=== PATIENT | male | born 1945 | race Caucasian/White ===

== ENCOUNTER → 2021-12-13 | Outpatient (CLI) | payer MEDICARE ==
[2021-12-13 14:14] VITALS: BP 186/93; PULSE 72; TEMP 98.2; BMI 29.9
--- NOTE | 2021-12-13 14:58 | P.HPBAR ---
Bariatric H&P - History & Physicial H&P Date: 12/13/21 History & Physicial: Visit/CC: lap band follow up Patient initial contact: Initial weight: Initial weight in pounds: Height: 6 ft Initial BMI: Last weight: Current weight: 100.244 kg Current weight in pounds: 221.00 Current BMI: 29.9 [place] body weight (based on NIH guidelines): 80.739 kg Excess body weight loss: The patient is a 76 year-old M who presents for Bariatric Assessment. Resents today for LAP-BAND follow-up. He's been seen several years. He has complete epigastric pain. He also has some mild dysphagia. Past Medical History Smoking Status: Former smoker Surgical - Exam Vital Signs Temp Pulse BP 98.2 F 72 186/93 12/13/21 14:11 12/13/21 14:11 12/13/21 14:11 - General well developed, well nourished, no distress - Eyes PERRL - ENT normal pinna, normal nares - Neck no masses - Respiratory normal expansion - Cardiovascular Rhythm: regular - Abdomen Abdomen: soft, non tender Bariatric Assessment & Plan Plan: Patient had [place] surgery many years ago. His epigastric pain will be in this area with upper GI and EGD. Bariatric Checklist Checklist: Plan: Checklist: EGD: 1. Hiatal hernia: 2. H. Pylori: HgbA1c: Vitamin D: Smoking: Primary care physician referral: Psychiatry clearance: Cardiology clearance: Sleep study: Diet journal: VTE risk score: VTE risk level: Rehab needs at discharge:
== END ==
LOC: BARWHC3 13:48
PROVIDERS: ATTEND Surgery
DX: Z09 Encounter for follow-up examination after completed treatment for conditions other than malignant neoplasm (principal); R10.13 Epigastric pain; R13.10 Dysphagia, unspecified; Z87.891 Personal history of nicotine dependence; Z91.040 Latex allergy status
CPT/HCPCS: 99211

== ENCOUNTER → 2021-12-16 | Day surgery (SDC) | payer MEDICARE ==
[2021-12-15 09:18] VITALS: BMI 29.0
[~2021-12-16] MED LIST: IBUPROFEN 200 MG TAB PO ONE; LACTATED RINGERS 1,000 ML IV ONE; LACTATED RINGERS 1,000 ML IV SCH; LIDOCAINE 1% (10MG/ML) FOR IV START INTRADERMA PRN; LIDOCAINE 1% INJ 10MG/ML (20 ML MDV) ONE; PROPOFOL 10 MG/ML 20 ML VIAL IV ONE
[2021-12-16 11:18] VITALS: TEMP 98.2
--- NOTE | 2021-12-16 11:53 | P.GSHP ---
History of Present Illness H&P Date: 12/16/21 Chief Complaint: GERD This 76-year-old male. Previous history of GERD. Patient's is LAP-BAND. Patient presents today for EGD. Past Medical History Past Medical History: Cancer, Hyperlipidemia, Osteoarthritis (OA) Additional Past Medical History / Comment(s): prostate cancer, sinus infection, tooth pulled History of Any Multi-Drug Resistant Organisms: None Reported Past Surgical History: Appendectomy, Bariatric Surgery, Orthopedic Surgery, Prostate Surgery Additional Past Surgical History / Comment(s): lap band surgery Past Anesthesia/Blood Transfusion Reactions: No Reported Reaction Smoking Status: Former smoker - Past Family History Mother Family Medical History: No Reported History Medications and Allergies Home Medications Medication Instructions Recorded Confirmed Type Meloxicam [Mobic] 15 mg PO DAILY 12/13/21 12/16/21 History Multivitamins, Thera [Multivitamin 1 tab PO DAILY 12/13/21 12/16/21 History (formulary)] Simvastatin [Zocor] 20 mg PO DAILY 12/13/21 12/16/21 History Tadalafil [Cialis] 5 mg PO DIRECTED 12/13/21 12/16/21 History Amoxicillin 500 mg PO Q12HR 12/15/21 12/16/21 History Naproxen Sodium [Aleve] 220 mg PO DAILY 12/15/21 12/16/21 History Allergies Allergy/AdvReac Type Severity Reaction Status Date / Time latex Allergy Rash/Hives Verified 12/16/21 11:10 Surgical - Exam Vital Signs Temp Pulse Resp BP Pulse Ox 98.2 F 76 18 173/78 98 12/16/21 11:14 12/16/21 11:14 12/16/21 11:14 12/16/21 11:14 12/16/21 11:14 - General well developed, well nourished, no distress - Eyes PERRL - ENT normal pinna, normal nares - Neck no masses - Respiratory normal expansion - Cardiovascular Rhythm: regular - Abdomen Abdomen: soft, non tender Assessment and Plan Assessment: GERD. We'll perform EGD.
--- NOTE | 2021-12-16 12:03 | P.OP ---
Date of Procedure: 12/16/21 Preoperative Diagnosis: GERD Postoperative Diagnosis: Antral gastritis LAP-BAND without inflammation or erosion Procedure(s) Performed: EGD Anesthesia: MAC Surgeon: Jay Talavera Pathology: other (Antrum) Condition: stable Disposition: PACU Description of Procedure: The patient's placed on the endoscopy table in the lateral position. He received IV sedation. The gastroscope placed oropharynx passed in the esophagus and stomach. Scope was then placed through the pylorus. The first and second portion of the duodenum appeared normal. Scope was then brought back the antrum and this appeared mildly inflamed. A biopsies performed. The scope was unretroflexed and the meters stomach appeared normal. The patient a previously placed LAP-BAND device. This was without evidence of inflammation or erosion. The GE junction was at 40 cm. The distal esophagus appeared. The proximal esophagus appeared normal. Scope withdrawn for patient.
[2021-12-16 13:06] VITALS: BP 148/81; PULSE 61; RESP 18
== END ==
LOC: ORWHC2ENDO 10:49
PROVIDERS: ATTEND Surgery
DX: K29.50 Unspecified chronic gastritis without bleeding (principal); K21.9 Gastro-esophageal reflux disease without esophagitis; E78.5 Hyperlipidemia, unspecified; M19.90 Unspecified osteoarthritis, unspecified site; Z98.84 Bariatric surgery status; Z85.46 Personal history of malignant neoplasm of prostate; Z98.890 Other specified postprocedural states; Z90.49 Acquired absence of other specified parts of digestive tract; Z87.891 Personal history of nicotine dependence; Z79.899 Other long term (current) drug therapy; Z91.040 Latex allergy status
CPT/HCPCS: 88305; 43239; J2001; J2704

== ENCOUNTER → 2021-12-27 | Outpatient (CLI) | payer MEDICARE ==
--- NOTE | 2021-12-27 14:16 | FL ---
EXAMINATION TYPE: FL barium swallow DATE OF EXAM: 12/27/2021 LAP BANDING LIMITED ESOPHAGRAM: CLINICAL HISTORY: Lap band placed roughly 12 years ago with dysphasia, epigastric pain on and off fo r 3 months. Patient has had empty fill for years per patient. TECHNIQUE: Limited esophagram is performed utilizing 2-3 oz of barium. 23 seconds of fluoro time an d 33 images obtained. COMPARISON: None. FINDINGS: Pre-procedure geological scout image shows lap band in satisfactory position in proximal stomach ju st below the diaphragm. Phi Angle is within normal limits. The patient then drank oral contrast. There is good flow of contrast along the course of the esophagu s. There is good flow of contrast along the course of the lap band, there is no evidence of contrast extravasation to suggest leak. Small amount of contrast pools in mildly dilated distal esophagus. Th ere is no lap band slippage identified. Patient remains asymptomatic. IMPRESSION: No evidence of lap band slippage or significant obstruction.
== END | disposition home or self-care (01) ==
LOC: RADFLMAIN 12:55
PROVIDERS: ATTEND Surgery
DX: R13.10 Dysphagia, unspecified (principal)
CPT/HCPCS: 74220

== ENCOUNTER → 2021-12-27 | Outpatient (CLI) | payer MEDICARE ==
[2021-12-27 14:25] VITALS: BP 141/79; PULSE 69; TEMP 97.9; BMI 29.7
--- NOTE | 2021-12-27 14:30 | P.HPBAR ---
Bariatric H&P - History & Physicial H&P Date: 12/27/21 History & Physicial: Visit/CC: lap band follow up Patient initial contact: Initial weight: Initial weight in pounds: Height: 6 ft Initial BMI: Last weight: Current weight: 99.337 kg Current weight in pounds: 219.00 Current BMI: 29.7 [place] body weight (based on NIH guidelines): 80.739 kg Excess body weight loss: The patient is a 76 year-old M who presents for Bariatric Assessment. Patient feels well. He's had minimal GERD. And no dysphasia. Past Medical History Past Medical History: Cancer, Hyperlipidemia, Osteoarthritis (OA) Additional Past Medical History / Comment(s): prostate cancer, sinus infection, tooth pulled History of Any Multi-Drug Resistant Organisms: None Reported Past Surgical History: Appendectomy, Bariatric Surgery, Orthopedic Surgery, Prostate Surgery Additional Past Surgical History / Comment(s): lap band surgery Past Anesthesia/Blood Transfusion Reactions: No Reported Reaction Past Psychological History: No Psychological Hx Reported Smoking Status: Former smoker Past Alcohol Use History: None Reported Additional Past Alcohol Use History / Comment(s): quit smoking 1960 Past Drug Use History: None Reported - Past Family History Mother Family Medical History: No Reported History Surgical - Exam Vital Signs Temp Pulse BP 97.9 F 69 141/79 12/27/21 14:23 12/27/21 14:23 12/27/21 14:23 - General well developed, well nourished, no distress - Eyes PERRL - ENT normal pinna - Neck no masses - Respiratory normal expansion - Cardiovascular Rhythm: regular - Abdomen Abdomen: soft, non tender Bariatric Assessment & Plan Plan: Resolved dysphagia. Patient is minimal. He will be observed. He'll follow-up in 12 weeks. Bariatric Checklist Checklist: Plan: Checklist: EGD: 1. Hiatal hernia: 2. H. Pylori: HgbA1c: Vitamin D: Smoking: Primary care physician referral: Psychiatry clearance: Cardiology clearance: Sleep study: Diet journal: VTE risk score: VTE risk level: Rehab needs at discharge:
== END ==
LOC: BARWHC3 14:21
PROVIDERS: ATTEND Surgery
DX: K21.9 Gastro-esophageal reflux disease without esophagitis (principal); Z98.84 Bariatric surgery status; E78.5 Hyperlipidemia, unspecified; M19.90 Unspecified osteoarthritis, unspecified site; Z87.891 Personal history of nicotine dependence; Z91.040 Latex allergy status
CPT/HCPCS: 99211